=== PATIENT | female | born 1945 | race Caucasian/White ===

== ENCOUNTER 2017-10-07 14:20 | Emergency (ER) | payer MEDICARE, SELFPAY ==
[2017-10-07 14:28] VITALS: BP 156/84; PULSE 97; RESP 20; TEMP 37; O2SAT 98; BMI 35.3
--- NOTE | 2017-10-07 15:25 | ED.FALL ---
HPI - Fall <YOANDY Ames - Last Filed: 10/07/17 22:51> General Chief Complaint: Fall Stated Complaint: Fell yesterday, left wrist and shoulder pain Time Seen by Provider: 10/07/17 15:10 Source: patient Mode of arrival: ambulatory Limitations: no limitations History of Present Illness HPI Narrative: Patient had a ground level fall yesterday. She states that she landed on an outstretched hand on her left side. She was evaluated by paramedics on scene, who placed during the same splint [place] She has been taking her home dose of hydrocodone for pain. She denies any numbness or tingling. She presents with the same splint in place as well as a sling and swath. She states her wrist is swollen. She complains of hand pain, wrist pain, shoulder pain on the left side. She did not hit her head neck or back. She does not take blood thinners. She states she does not have any injuries other than her wrist. Patient emphatic that she tripped and fell, did not syncope. Related Data Home Medications Medication Instructions Recorded Confirmed Apply Cider Vinegar 15 ml PO DAILY 11/06/17 11/06/17 Choline Cocktail 1 dose PO DAILY 11/06/17 11/06/17 Allergies Allergy/AdvReac Type Severity Reaction Status Date / Time No Known Drug Allergies Allergy Verified 10/07/17 14:32 Review of Systems <YOANDY Ames - Last Filed: 10/07/17 22:51> Review of Systems GENERAL: See HPI HEENT: Denies sinus pain, ear pain, sore throat, difficulty swallowing, dizziness. RESPIRATORY: Denies dyspnea, cough, wheezing, hemoptysis, sputum. CARDIOVASCULAR: Denies chest pain, palpitations, orthopnea, edema, GASTROINTESTINAL: Denies nausea, vomiting, abdominal pain, diarrhea, constipation, melena. : Denies dysuria, frequency, incontinence, hematuria, urinary retention. MUSCULOSKELETAL: See HPI SKIN: See HPI NEUROLOGIC: Denies weakness, headache, numbness, change in speech, confusion, seizures, incoordination. PSYCHIATRIC: No concerning psychosocial issues. 12 point review of systems is negative except for those stated above Exam <YOANDY Ames - Last Filed: 10/07/17 22:51> Narrative Exam Narrative: GENERAL: This is a well-nourished, well-developed patient, teary. HEAD: Atraumatic. Normocephalic. No temporal or scalp tenderness. EYES: Pupils equal round and reactive. Extraocular motions intact. No scleral icterus. No injection or drainage. ENT: Nose without bleeding, purulent drainage or septal hematoma. Throat without erythema, tonsillar hypertrophy or exudate. Uvula midline. Airway patent. NECK: Trachea midline. No JVD or lymphadenopathy. Supple, nontender, no meningeal signs. CARDIOVASCULAR: Regular rate and rhythm without murmurs, gallops, or rubs. RESPIRATORY: Clear to auscultation. Breath sounds equal bilaterally. No wheezes, rales, or rhonchi. GASTROINTESTINAL: Abdomen soft, non-tender, nondistended. No hepato-splenomegaly, or palpable masses. No guarding. EXTREMITIES: Swelling of left wrist noted. Pain to palpation of left wrist with decreased range of motion. Patient is unable to flex or extend wrist. Pain to palpation of left elbow, however patient has full range of motion of left elbow. No pain to palpation of left shoulder. Patient does have generalized pain to palpation of left hand. Radial pulse is intact of left hand. Left fingers are warm, patient is able to move them. BACK: Nontender without deformity or crepitance. No flank tenderness. NEURO: AOx3. SKIN: Ecchymosis of left wrist. Skin is intact at left wrist. Initial Vital Signs Initial Vital Signs: Vital Signs Temperature 98.6 F 10/07/17 14:28 Pulse Rate 97 H 10/07/17 14:28 Respiratory Rate 20 10/07/17 14:28 Blood Pressure 156/84 H 10/07/17 14:28 Pulse Oximetry 98 10/07/17 14:28 <Jez Nunez MD - Last Filed: 11/08/17 06:48> Initial Vital Signs Initial Vital Signs: Vital Signs Temperature 98.6 F 10/07/17 14:28 Pulse Rate 97 H 10/07/17 14:28 Respiratory Rate 20 10/07/17 14:28 Blood Pressure 156/84 H 10/07/17 14:28 Pulse Oximetry 98 10/07/17 14:28 Procedures <FABIOLA Ames - Last Filed: 10/07/17 22:51> Orthopedic Splinting/Casting Injury #1: Side: left Upper Extremity Injury Location: wrist Upper Extremity Immobilizer: sling/shoulder immobilizer and sugar tong splint Additional Comments: Patient's pulse, motor, or sensory intact of left hand before and after splint application. Patient's fingers remained warm after splint application. Course <WALLY Ames-BC - Last Filed: 10/07/17 22:51> Hospital Course: Patient presented after a fall. She had multiple x-rays and was found to have distal ulnar radial fracture. She was placed in a splint as discussed by Orthopedics. Discussed at length with patient monitoring for circulation. I checked on her multiple times throughout her emergency department stay. Her pain was well controlled as she had taken hydrocodone prior to arrival. Orders Ordered: ED Orders 10/07/17 15:25 XR elbow LT 2V Stat XR hand LT min 3V Stat XR wrist LT min 3V Stat Consultations Consultation #1: Dr. Campbell from [facility] reviewed patient's films. Recommended sugar-tong splint and follow up with them. Stated as long as patient was neurovascularly intact, patient's fracture did not need to be reduced in the emergency department. Vital Signs - 8 hr 10/07/17 17:37 Pulse Rate 74 Respiratory Rate 12 Blood Pressure [Right Arm] 170/87 H Pulse Oximetry 100 <Jez Nunez MD - Last Filed: 11/08/17 06:48> Orders Ordered: ED Orders 10/07/17 15:25 XR elbow LT 2V Stat XR hand LT min 3V Stat XR wrist LT min 3V Stat Vital Signs - 8 hr 10/07/17 17:37 Pulse Rate 74 Respiratory Rate 12 Blood Pressure [Right Arm] 170/87 H Pulse Oximetry 100 MDM - Fall <WALLY Ames-BC - Last Filed: 10/07/17 22:51> Medical Records Patient's x-rays were suspicious for a comminuted, displaced, intra-articular fracture of the left radius. The patient also had an ulnar styloid fracture. Expert consultation was obtained through [facility], who suggested follow-up with them. Patient was placed in sugar-tong splint as per orthopedics. Pulse motor and sensory was intact before and after splint application. Discussed at length with patient return precautions a concern for decreased circulation of hand. Patient given small pain med prescription and stated understanding of not driving on at work many medications for that. No questions or concerns upon discharge. Imaging Data left wrist xray: Radiologist's impression: [address] [address] XRay Report Addendum Patient: Tricia Burton MR#: [id number] : 1945 Acct:[id number] Age/Sex: 71 / F Date of Service: 10/07/17 Loc: ED Accession Number: [id number] Procedure: XR wrist LT min 3V Ordering Provider: Stephy Ro ADDENDUM This report includes an Addendum and supersedes previous reports for this exam. PROCEDURE: XR WRIST LT MIN 3V INDICATIONS: fall, decreased rom TECHNIQUE: 4 views of the wrist were acquired. COMPARISON: None. FINDINGS: Bones: There is a comminuted, displaced, intra-articular fracture of the distal radius. There is an ulnar styloid fracture as well. Scaphoid view: The scaphoid is intact. Soft tissues: No suspicious soft tissue calcifications. IMPRESSION: Distal radial and ulnar fractures as above. Dictated by: Beatriz Wiggins M.D. on 10/07/2017 at 15:55 Approved by: Beatriz Wiggins M.D. on 10/07/2017 at 15:56 ADDENDUM: Please note, there is a subtle radiolucency projected over the scaphoid on the scaphoid view. This is not seen on the other images; however minimally displaced scaphoid fracture cannot be excluded. Dictated by: Beatriz Wiggins M.D. on 10/07/2017 at 15:58 Approved by: Beatriz Wiggins M.D. on 10/07/2017 at 15:59 Addendum Dictated By: Beatriz Wiggins M.D. Addendum Signed By: Addendum Cosigned By: DD/ /22/1600 TD/TT: 10/07/1707/22/1600 PROCEDURE: XR WRIST LT MIN 3V INDICATIONS: fall, decreased rom TECHNIQUE: 4 views of the wrist were acquired. COMPARISON: None. FINDINGS: Bones: There is a comminuted, displaced, intra-articular fracture of the distal radius. There is an ulnar styloid fracture as well. Scaphoid view: The scaphoid is intact. Soft tissues: No suspicious soft tissue calcifications. IMPRESSION: Distal radial and ulnar fractures as above. Dictated by: Beatriz Wiggins M.D. on 10/07/2017 at 15:55 Approved by: Beatriz Wiggins M.D. on 10/07/2017 at 15:56 left hand xray: Radiologist's impression: [address] [address] XRay Report Signed Patient: Tricia Burton MR#: [id number] : 1945 Acct:[id number] Age/Sex: 71 / F Date of Service: 10/07/17 Loc: ED Accession Number: [id number] Procedure: XR hand LT min 3V Ordering Provider: Stephy Ro PROCEDURE: XR HAND LT MIN 3V INDICATIONS: fall decreased rom TECHNIQUE: 3 views of the hand(s) acquired. COMPARISON: None. FINDINGS: Bones: There is a comminuted, displaced, intra-articular, impacted fracture of the distal radius. There is an ulnar styloid fracture. A subtle radiolucent line is present at the base of the scaphoid raising the suspicion for nondisplaced fracture. Soft tissues: No suspicious soft tissue calcifications. IMPRESSION: 1. Distal radial and ulnar fractures. 2. Questionable nondisplaced scaphoid fracture. Dictated by: Beatriz Wiggins M.D. on 10/07/2017 at 15:59 Approved by: Beatriz Wiggins M.D. on 10/07/2017 at 16:00 left elbow xray: Radiologist's impression: [address] [address] XRay Report Signed Patient: Tricia Burton MR#: [id number] : 1945 Acct:[id number] Age/Sex: 71 / F Date of Service: 10/07/17 Loc: ED Accession Number: [id number] Procedure: XR elbow LT 2V Ordering Provider: Stephy Ro PROCEDURE: XR ELBOW LT 2V INDICATIONS: fall decreased rom TECHNIQUE: 3 views of the elbow were acquired. COMPARISON: None. FINDINGS: Bones: No fractures or dislocations. No suspicious bony lesions. Soft tissues: No elbow joint effusion. No suspicious soft tissue calcifications. IMPRESSION: No acute radiographic findings. If pain persists, repeat study in 5-7 days is recommended to exclude occult fracture. Dictated by: Beatriz Wiggins M.D. on 10/07/2017 at 15:57 Approved by: Beatriz Wiggins M.D. on 10/07/2017 at 15:57 Discharge Plan Departure Patient Disposition: Home, Self-Care Clinical Impression: Fracture of wrist Discharge Date/Time: 10/07/17 17:52 Interventions: ED Discharge Assessment Last Done: 10/07/17 17:51 Instructions: How To Perform RICE (Rest, Ice, Compress, Elevate), How to Take Care of Your Splint, DI for Distal Radius Fracture Activity Restrictions/Additional Instructions: You broke some bones in your wrist when you fell. We have splinted your arm. I would like you to rest, use ice, elevate your arm and take the pain medication as needed. Be careful as the prescription has Tylenol in it. Do not take too much Tylenol in addition to the prescription. Monitor your hand for circulation and be evaluated if your hand becomes cold, blue or if you have concerns about your circulation. Please do not drive on the pain medication and be careful as it can make you tired. Prescriptions: No Action Apply Cider Vinegar 15 ml PO DAILY RF: 0 Choline Cocktail 1 dose PO DAILY RF: 0 Referrals: [facility] [Outside] Kelli Hooper MD [Primary Care Provider] - <Jez Nunez MD - Last Filed: 11/08/17 06:48> Cosign ED Attending Cosignature Attestation: The PA/ONCOLOGY ACCOUNT SPECIALIST functioned independently for the care of this pt, I was available, but not asked to participate in care. I am unable to determine appropriateness of management without personally examining the pt.
--- NOTE | 2017-10-07 16:58 | ED_ITS ---
HPI - Fall <YOANDY Ames - Last Filed: 10/07/17 22:51> General Chief Complaint: Fall Stated Complaint: Fell yesterday, left wrist and shoulder pain Time Seen by Provider: 10/07/17 15:10 Source: patient Mode of arrival: ambulatory Limitations: no limitations History of Present Illness HPI Narrative: Patient had a ground level fall yesterday. She states that she landed on an outstretched hand on her left side. She was evaluated by paramedics on scene, who placed during the same splint however [place] She has been taking her home dose of hydrocodone for pain. She denies any numbness or tingling. She presents with the same splint in place as well as a sling and swath. She states her wrist is swollen. She complains of hand pain, wrist pain, shoulder pain on the left side. She did not hit her head neck or back. She does not take blood thinners. She states she does not have any injuries other than her wrist. Patient emphatic that she tripped and fell, did not syncope. Related Data Home Medications Medication Instructions Recorded Confirmed Apply Cider Vinegar 15 ml PO DAILY 11/06/17 11/06/17 Choline Cocktail 1 dose PO DAILY 11/06/17 11/06/17 Allergies Allergy/AdvReac Type Severity Reaction Status Date / Time No Known Drug Allergies Allergy Verified 10/07/17 14:32 Review of Systems <YOANDY Ames - Last Filed: 10/07/17 22:51> Review of Systems GENERAL: See HPI HEENT: Denies sinus pain, ear pain, sore throat, difficulty swallowing, dizziness. RESPIRATORY: Denies dyspnea, cough, wheezing, hemoptysis, sputum. CARDIOVASCULAR: Denies chest pain, palpitations, orthopnea, edema, GASTROINTESTINAL: Denies nausea, vomiting, abdominal pain, diarrhea, constipation, melena. : Denies dysuria, frequency, incontinence, hematuria, urinary retention. MUSCULOSKELETAL: See HPI SKIN: See HPI NEUROLOGIC: Denies weakness, headache, numbness, change in speech, confusion, seizures, incoordination. PSYCHIATRIC: No concerning psychosocial issues. 12 point review of systems is negative except for those stated above Exam <YOANDY Ames - Last Filed: 10/07/17 22:51> Narrative Exam Narrative: GENERAL: This is a well-nourished, well-developed patient, teary. HEAD: Atraumatic. Normocephalic. No temporal or scalp tenderness. EYES: Pupils equal round and reactive. Extraocular motions intact. No scleral icterus. No injection or drainage. ENT: Nose without bleeding, purulent drainage or septal hematoma. Throat without erythema, tonsillar hypertrophy or exudate. Uvula midline. Airway patent. NECK: Trachea midline. No JVD or lymphadenopathy. Supple, nontender, no meningeal signs. CARDIOVASCULAR: Regular rate and rhythm without murmurs, gallops, or rubs. RESPIRATORY: Clear to auscultation. Breath sounds equal bilaterally. No wheezes , rales, or rhonchi. GASTROINTESTINAL: Abdomen soft, non-tender, nondistended. No hepato-splenomegaly , or palpable masses. No guarding. EXTREMITIES: Swelling of left wrist noted. Pain to palpation of left wrist with decreased range of motion. Patient is unable to flex or extend wrist. Pain to palpation of left elbow, however patient has full range of motion of left elbow. No pain to palpation of left shoulder. Patient does have generalized pain to palpation of left hand. Radial pulse is intact of left hand. Left fingers are warm, patient is able to move them. BACK: Nontender without deformity or crepitance. No flank tenderness. NEURO: AOx3. SKIN: Ecchymosis of left wrist. Skin is intact at left wrist. Initial Vital Signs Initial Vital Signs: Vital Signs Temperature 98.6 F 10/07/17 14:28 Pulse Rate 97 H 10/07/17 14:28 Respiratory Rate 20 10/07/17 14:28 Blood Pressure 156/84 H 10/07/17 14:28 Pulse Oximetry 98 10/07/17 14:28 <Jez Nunez MD - Last Filed: 11/08/17 06:48> Initial Vital Signs Initial Vital Signs: Vital Signs Temperature 98.6 F 10/07/17 14:28 Pulse Rate 97 H 10/07/17 14:28 Respiratory Rate 20 10/07/17 14:28 Blood Pressure 156/84 H 10/07/17 14:28 Pulse Oximetry 98 10/07/17 14:28 Procedures <FABIOLA Ames - Last Filed: 10/07/17 22:51> Orthopedic Splinting/Casting Injury #1: Side: left Upper Extremity Injury Location: wrist Upper Extremity Immobilizer: sling/shoulder immobilizer and sugar tong splint Additional Comments: Patient's pulse, motor, or sensory intact of left hand before and after splint application. Patient's fingers remained warm after splint application. Course <WALLY Ames-BC - Last Filed: 10/07/17 22:51> Hospital Course: Patient presented after a fall. She had multiple x-rays and was found to have distal ulnar radial fracture. She was placed in a splint as discussed by Orthopedics. Discussed at length with patient monitoring for circulation. I checked on her multiple times throughout her emergency department stay. Her pain was well controlled as she had taken hydrocodone prior to arrival. Orders Ordered: ED Orders 10/07/17 15:25 XR elbow LT 2V Stat XR hand LT min 3V Stat XR wrist LT min 3V Stat Consultations Consultation #1: Dr. Campbell from [facility] reviewed patient's films. Recommended sugar-tong splint and follow up with them. Stated as long as patient was neurovascularly intact, patient's fracture did not need to be reduced in the emergency department. Vital Signs - 8 hr 10/07/17 17:37 Pulse Rate 74 Respiratory Rate 12 Blood Pressure [Right Arm] 170/87 H Pulse Oximetry 100 <Jez Nunez MD - Last Filed: 11/08/17 06:48> Orders Ordered: ED Orders 10/07/17 15:25 XR elbow LT 2V Stat XR hand LT min 3V Stat XR wrist LT min 3V Stat Vital Signs - 8 hr 10/07/17 17:37 Pulse Rate 74 Respiratory Rate 12 Blood Pressure [Right Arm] 170/87 H Pulse Oximetry 100 MDM - Fall <WALLY Ames-BC - Last Filed: 10/07/17 22:51> Medical Records Patient's x-rays were suspicious for a comminuted, displaced, intra-articular fracture of the left radius. The patient also had an ulnar styloid fracture. Expert consultation was obtained through [facility], who suggested follow-up with them. Patient was placed in sugar-tong splint as per orthopedics. Pulse motor and sensory was intact before and after splint application. Discussed at length with patient return precautions a concern for decreased circulation of hand. Patient given small pain med prescription and stated understanding of not driving on at work many medications for that. No questions or concerns upon discharge. Imaging Data left wrist xray: Radiologist's impression: [address] [address] XRay Report Addendum Patient: Tricia Burton MR#: [id number] : 1945 Acct:[id number] Age/Sex: 71 / F Date of Service: 10/07/17 Loc: ED Accession Number: [id number] Procedure: XR wrist LT min 3V Ordering Provider: Stephy Ro ADDENDUM This report includes an Addendum and supersedes previous reports for this exam. PROCEDURE: XR WRIST LT MIN 3V INDICATIONS: fall, decreased rom TECHNIQUE: 4 views of the wrist were acquired. COMPARISON: None. FINDINGS: Bones: There is a comminuted, displaced, intra-articular fracture of the distal radius. There is an ulnar styloid fracture as well. Scaphoid view: The scaphoid is intact. Soft tissues: No suspicious soft tissue calcifications. IMPRESSION: Distal radial and ulnar fractures as above. Dictated by: Beatriz Wiggins M.D. on 10/07/2017 at 15:55 Approved by: Beatriz Wiggins M.D. on 10/07/2017 at 15:56 ADDENDUM: Please note, there is a subtle radiolucency projected over the scaphoid on the scaphoid view. This is not seen on the other images; however minimally displaced scaphoid fracture cannot be excluded. Dictated by: Beatriz Wiggins M.D. on 10/07/2017 at 15:58 Approved by: Beatriz Wiggins M.D. on 10/07/2017 at 15:59 Addendum Dictated By: Beatriz Wiggins M.D. Addendum Signed By: Addendum Cosigned By: DD/ /22/1600 TD/TT: 10/07/1707/22/1600 PROCEDURE: XR WRIST LT MIN 3V INDICATIONS: fall, decreased rom TECHNIQUE: 4 views of the wrist were acquired. COMPARISON: None. FINDINGS: Bones: There is a comminuted, displaced, intra-articular fracture of the distal radius. There is an ulnar styloid fracture as well. Scaphoid view: The scaphoid is intact. Soft tissues: No suspicious soft tissue calcifications. IMPRESSION: Distal radial and ulnar fractures as above. Dictated by: Beatriz Wiggins M.D. on 10/07/2017 at 15:55 Approved by: Beatriz Wiggins M.D. on 10/07/2017 at 15:56 left hand xray: Radiologist's impression: [address] [address] XRay Report Signed Patient: Tricia Burton MR#: [id number] : 1945 Acct:[id number] Age/Sex: 71 / F Date of Service: 10/07/17 Loc: ED Accession Number: [id number] Procedure: XR hand LT min 3V Ordering Provider: Stephy Ro PROCEDURE: XR HAND LT MIN 3V INDICATIONS: fall decreased rom TECHNIQUE: 3 views of the hand(s) acquired. COMPARISON: None. FINDINGS: Bones: There is a comminuted, displaced, intra-articular, impacted fracture of the distal radius. There is an ulnar styloid fracture. A subtle radiolucent line is present at the base of the scaphoid raising the suspicion for nondisplaced fracture. Soft tissues: No suspicious soft tissue calcifications. IMPRESSION: 1. Distal radial and ulnar fractures. 2. Questionable nondisplaced scaphoid fracture. Dictated by: Beatriz Wiggins M.D. on 10/07/2017 at 15:59 Approved by: Beatriz Wiggins M.D. on 10/07/2017 at 16:00 left elbow xray: Radiologist's impression: [address] [address] XRay Report Signed Patient: Tricia Burton MR#: [id number] : 1945 Acct:[id number] Age/Sex: 71 / F Date of Service: 10/07/17 Loc: ED Accession Number: [id number] Procedure: XR elbow LT 2V Ordering Provider: Stephy Ro PROCEDURE: XR ELBOW LT 2V INDICATIONS: fall decreased rom TECHNIQUE: 3 views of the elbow were acquired. COMPARISON: None. FINDINGS: Bones: No fractures or dislocations. No suspicious bony lesions. Soft tissues: No elbow joint effusion. No suspicious soft tissue calcifications. IMPRESSION: No acute radiographic findings. If pain persists, repeat study in 5 -7 days is recommended to exclude occult fracture. Dictated by: Beatriz Wiggins M.D. on 10/07/2017 at 15:57 Approved by: Beatriz Wiggins M.D. on 10/07/2017 at 15:57 Discharge Plan Departure Patient Disposition: Home, Self-Care Clinical Impression: Fracture of wrist Discharge Date/Time: 10/07/17 17:52 Interventions: ED Discharge Assessment Last Done: 10/07/17 17:51 Instructions: How To Perform RICE (Rest, Ice, Compress, Elevate), How to Take Care of Your Splint, DI for Distal Radius Fracture Activity Restrictions/Additional Instructions: You broke some bones in your wrist when you fell. We have splinted your arm. I would like you to rest, use ice, elevate your arm and take the pain medication as needed. Be careful as the prescription has Tylenol in it. Do not take too much Tylenol in addition to the prescription. Monitor your hand for circulation and be evaluated if your hand becomes cold, blue or if you have concerns about your circulation. Please do not drive on the pain medication and be careful as it can make you tired. Prescriptions: No Action Apply Cider Vinegar 15 ml PO DAILY RF: 0 Choline Cocktail 1 dose PO DAILY RF: 0 Referrals: [facility] [Outside] Kelli Hooper MD [Primary Care Provider] - <Jez Nunez MD - Last Filed: 11/08/17 06:48> Cosign ED Attending Cosignature Attestation: The PA/BARREL WASHER functioned independently for the care of this pt, I was available, but not asked to participate in care. I am unable to determine appropriateness of management without personally examining the pt.
[2017-10-07 17:37] VITALS: BP 170/87; PULSE 74; RESP 12; O2SAT 100
== END 2017-10-07 17:52 | disposition home or self-care (01) ==
PROVIDERS: Emergency Provider Nurse Practitioner Family; Family Provider Family Medicine; PCP Family Medicine
DX: S62.102A Fracture of unspecified carpal bone, left wrist, initial encounter for closed fracture (principal); W18.30XA Fall on same level, unspecified, initial encounter
CPT/HCPCS: 29105; 29240; 73070; 73110; 73130; 99283

== ENCOUNTER 2017-11-06 13:29 | Emergency (ER) | payer MEDICARE, SELFPAY ==
[2017-11-06 13:34] VITALS: BP 164/92; PULSE 100; RESP 20; TEMP 36.4; O2SAT 97
--- NOTE | 2017-11-06 13:47 | ED.LOWEXIN ---
HPI - Extremity Injury (Lower) <Helena Campos PA-C - Last Filed: 11/06/17 20:45> General Chief Complaint: Extremity Injury, Lower Stated Complaint: LEFT LEG POSSIBLE CLOT Time Seen by Provider: 11/06/17 13:47 Source: patient Mode of arrival: ambulatory Limitations: no limitations History of Present Illness HPI Narrative: This 71-year-old female is sent here by a PCP this due to mildly positive D-dimer in the setting of left radial fracture and hand fracture pinning on October 17, along with a swollen left leg. She states that the swelling actually started 10-14 days ago, mostly at the ankle level. She states she really did not have any significant pain and does have swelling in that leg from time to time due to varicosities. Swelling has improved, however she was evaluated at the clinic today and felt to need Doppler study. She denies chest pain or dyspnea or other new complaints on systems review. She has been walking without difficulty aside from left foot drop which has been present for sometimes and she states is improving. She is a smoker. She has no history of blood clots Related Data Home Medications Medication Instructions Recorded Confirmed Apply Cider Vinegar 15 ml PO DAILY 11/06/17 11/06/17 Choline Cocktail 1 dose PO DAILY 11/06/17 11/06/17 Allergies Allergy/AdvReac Type Severity Reaction Status Date / Time No Known Drug Allergies Allergy Verified 10/07/17 14:32 Review of Systems <Helena Campos PA-C - Last Filed: 11/06/17 20:45> Review of Systems All systems reviewed & are unremarkable except as noted in HPI and below Exam <Helena Campos PA-C - Last Filed: 11/06/17 20:45> Narrative Exam Narrative: GENERAL APPEARANCE: Patient sitting comfortably, in no distress. NECK/THYROID: Neck supple, no JVD. LUNGS: Clear to auscultation bilaterally. HEART: Regular rate and rhythm without murmur, normal S1, S2, no S3 or S4. EXTREMITIES: No cyanosis, trace L. ankle edema, none on the right. No calf tenderness. She has numerous ropey varicosities on both calves, more prominent on the left, as well as small spider veins bilaterally. L. pedal pulses intact NEUROLOGIC: Alert and oriented, normal speech, gait and coordination. Initial Vital Signs Initial Vital Signs: Vital Signs Temperature 97.5 F L 11/06/17 13:34 Pulse Rate 100 H 11/06/17 13:34 Respiratory Rate 20 11/06/17 13:34 Blood Pressure 164/92 H 11/06/17 13:34 Pulse Oximetry 97 11/06/17 13:34 <DO Karla Gamez Last Filed: 11/08/17 14:32> Initial Vital Signs Initial Vital Signs: Vital Signs Temperature 97.5 F L 11/06/17 13:34 Pulse Rate 100 H 11/06/17 13:34 Respiratory Rate 20 11/06/17 13:34 Blood Pressure 164/92 H 11/06/17 13:34 Pulse Oximetry 97 11/06/17 13:34 Course <Helena Campos PA-C - Last Filed: 11/06/17 20:45> Orders Ordered: ED Orders 11/06/17 13:47 US periph venous low extrem lt Stat Vital Signs - 8 hr 11/06/17 13:34 11/06/17 14:40 Temperature 97.5 F L Pulse Rate 100 H 100 H Respiratory Rate 20 18 Blood Pressure 164/92 H 162/85 H Pulse Oximetry 97 97 <DO Karla Gamez Last Filed: 11/08/17 14:32> Orders Ordered: ED Orders 11/06/17 13:47 US periph venous low extrem lt Stat Vital Signs - 8 hr 11/06/17 13:34 11/06/17 14:40 Temperature 97.5 F L Pulse Rate 100 H 100 H Respiratory Rate 20 18 Blood Pressure 164/92 H 162/85 H Pulse Oximetry 97 97 MDM - Extremity Injury (Lower) <CHRISTOPHER Willingham Last Filed: 11/06/17 20:45> Imaging Data Venous US: Radiologist's impression: View Report History [address] [address] Ultrasound Report Signed Patient: Tricia Burton MR#: [id number] : 1945 Acct:[id number] Age/Sex: 71 / F Date of Service: 11/06/17 Loc: ED Accession Number: [id number] Procedure: US periph venous low extrem lt Ordering Provider: Fishfader,Helena A P.A-C PROCEDURE: US PERIPH VENOUS LOW EXTREM LT INDICATIONS: poss DVT TECHNIQUE: Real-time imaging, as well as color and pulse Doppler interrogation, were performed of the lower extremity deep veins from the inguinal ligament to the popliteal fossa. COMPARISON: None. FINDINGS: The deep veins are normally compressible, and free of intraluminal thrombus. Color and pulse Doppler demonstrate normal phasic intraluminal flow. There is normal augmentation response to distal compression maneuver. IMPRESSION: 1. No evidence of deep venous thrombosis within the left lower extremity. Dictated by: Hugo Frey M.D. on 11/06/2017 at 14:27 Approved by: Hugo Frey M.D. on 11/06/2017 at 14:28 Discharge Plan Departure Patient Disposition: Home, Self-Care Clinical Impression: Peripheral venous insufficiency Discharge Date/Time: 11/06/17 14:40 Interventions: ED Discharge Assessment Last Done: 11/06/17 14:40 Instructions: Chronic Venous Insufficiency Activity Restrictions/Additional Instructions: You new not appear to have any blood clot in your left leg today. I suspect this is due to the chronic on and off swelling from your varicose veins there. Please return or see your PCP as we talked about if any new or acutely worsening symptoms while you are recovering from surgery Prescriptions: No Action Apply Cider Vinegar 15 ml PO DAILY RF: 0 Choline Cocktail 1 dose PO DAILY RF: 0 [facility] <Jemima Morrison DO - Last Filed: 11/08/17 14:32> [facility] Attending Elizabeth Attestation: I was immediately available in the department for consultation. Documentation has been reviewed. I agree with assessment and plan.
[2017-11-06 14:40] VITALS: BP 162/85; PULSE 100; RESP 18; O2SAT 97
== END 2017-11-06 14:40 | disposition home or self-care (01) ==
PROVIDERS: Emergency Provider Internal Medicine; Family Provider Family Medicine; PCP Family Medicine
DX: I87.2 Venous insufficiency (chronic) (peripheral) (principal)
CPT/HCPCS: 93971; 99283; 99284

== ENCOUNTER 2020-08-16 22:57 | Emergency (ER) | payer MEDICARE, SELFPAY ==
[2020-08-16 23:06] VITALS: BP 162/88; PULSE 102; RESP 15; TEMP 36.9; O2SAT 98; BMI 36.4
[2020-08-16 23:21] LABS: Bacteria Urine None Seen; WBC Urine None Seen (0-5/HPF)
[2020-08-16 23:31] LABS: Appearance Urine UA CLEAR; Bilirubin Urine UA NEGATIVE (NEGATIVE); Color Urine UA YELLOW; Glucose Urine UA NEGATIVE (Negative); Ketones Urine UA NEGATIVE (NEGATIVE); Leukocyte Esterase Urine UA NEGATIVE (NEGATIVE); Nitrite Urine UA NEGATIVE (Negative); Occult Blood Urine UA 2+ (Negative); Protein Urine UA NEGATIVE (Negative); Specific Gravity Urine UA 1.015 (1.000-1.035); Urobilinogen Urine UA 0.2 E.U./dL (0.2)
--- NOTE | 2020-08-16 23:54 | ED.GENADULT ---
HPI - General Adult General Chief complaint: Urogenital-Female Stated complaint: ABD CRAMPS Time Seen by Provider: 08/16/20 23:11 Source: patient Mode of arrival: Ambulatory Limitations: no limitations History of Present Illness HPI narrative: 74-year-old female who is here for evaluation of left-sided abdominal cramping. States the symptoms started within the past 24 hours. She did have an episode of diarrhea last night and episode of diarrhea today but this is not unusual for her. She has not had any urinary symptoms. No rashes. Has not tried anything for the symptoms. She describes pain in the left side of her abdomen. She stated that she thinks she has had diverticulitis in the past but that was many years ago and she does not remember if he feels anything like this. She has had C diff in the past but also feels that the symptoms today are different from that as well. He states that the symptoms come on and last for seconds and then completely resolved. Related Data Home Medications Medication Instructions Recorded Confirmed Apply Cider Vinegar 15 ml PO DAILY 11/06/17 11/06/17 Choline Cocktail 1 dose PO DAILY 11/06/17 11/06/17 Allergies Allergy/AdvReac Type Severity Reaction Status Date / Time No Known Drug Allergies Allergy Verified 10/07/17 14:32 Review of Systems Constitutional Constitutional: Denies fever(s) Cardiovascular Cardiovascular: Denies chest pain and Denies dyspnea Respiratory Respiratory: Denies dyspnea Gastrointestinal Gastrointestinal: Reports cramping, Reports diarrhea, Denies nausea and Denies vomiting Genitourinary Genitourinary: Denies dysuria Genitourinary: Denies dysuria Musculoskeletal Musculoskeletal: Denies arthralgias and Denies myalgias Integumentary/Breasts Skin/Breast: Denies lesions and Denies rash Neurologic Neurologic: Denies behavioral changes Psychiatric Psychiatric: Denies behavioral changes Hematologic/Lymphatic On Anticoagulants: No Allergic/Immunologic Allergic/Immunologic: Denies urticaria Patient History Medical History Acquired left foot drop Fracture of radial head, closed Lumbar disc herniation Osteoarthritis Rotator cuff syndrome of left shoulder Surgical History (Updated 11/06/17 @ 14:16 by Helena Campos PA-C) H/O: hysterectomy History of left hip replacement Social History Smoking Status: Current every day smoker Smoking Status: Current every day smoker alcohol intake frequency: a few times a week Substance Use Type: marijuana Exam Initial Vital Signs Initial Vital Signs: Vital Signs Temperature 98.5 F 08/16/20 23:06 Pulse Rate 102 H 08/16/20 23:06 Respiratory Rate 15 08/16/20 23:06 Blood Pressure 162/88 H 08/16/20 23:06 Pulse Oximetry 98 08/16/20 23:06 Const General: cooperative and comfortable Limitations: mental status not altered HENMT Head: normal to inspection and normocephalic Resp Effort & Inspection: normal respiratory effort Auscultation: clear to auscultation bilaterally Cardio Rate: regular rate Rhythm: regular rhythm GI Inspection: non-distended Palpation: soft, No firm and No tender Back/Spine/Pelvis Back: No CVA tenderness Skin Lesions: no lesions Rashes: no rashes Neuro General: patient alert, patient awake and patient oriented x3 Cognition: normal cognition Speech: speech normal Extrem General: normal to inspection and capillary refill normal Psych Appearance: grossly normal and well kempt Course Orders Ordered: ED Orders 08/16/20 23:14 Urinalysis and Microscopic Stat Vital Signs Vital signs: Vital Signs - 8 hr 08/16/20 23:06 08/17/20 00:06 Temperature 98.5 F Pulse Rate 102 H 85 Respiratory Rate 15 17 Blood Pressure 162/88 H 150/83 H Pulse Oximetry 98 98 Medical Decision Making Lab Data Lab results reviewed: Yes I reviewed the patient's lab results. Labs: Lab Results 08/16/20 Range/Units 23:14 Urine Color Yellow Urine Appearance Clear Urine pH 6.0 (4.5-8.0) Ur Specific [place] 1.015 (1.000-1.035) Urine Protein Negative (Negative) Urine Glucose (UA) Negative (Negative) g/dL Urine Ketones Negative (NEGATIVE) Urine Occult Blood 2+ H (Negative) Urine Nitrate Negative (Negative) Urine Bilirubin Negative (NEGATIVE) Urine Urobilinogen 0.2 (0.2) E.U./dL Ur Leukocyte Esterase Negative (NEGATIVE) Urine RBC 0-1/hpf (0-5/HPF) Urine WBC None seen (0-5/HPF) Ur Squamous Epith Cells 0-1 /hpf (0-5/HPF) Urine Bacteria None seen (None) Ur Culture Indicated? Cult not indicated MDM Narrative Medical decision making narrative: Patient's urine is unremarkable. She does report that her symptoms have improved since since arrival here to the ER. Had a discussion with her regarding them. Does not appear that this is a urinary tract infection low suspicion for pyelonephritis. We did discuss the possibility of diverticulitis and also renal stones. We discussed possibility of drawn labs and CT scan. She states she would like to hold on any of that workup for now because she is feeling better. She understands that we could potentially be missing an infectious/surgical issue. She states she would rather wait to see if her symptoms change or return and she will return to the emergency department if any of this happens. Discharge Plan Departure Patient Disposition: Home Clinical Impression: Abdominal cramping Instructions: DI for Abdominal Pain-Adult Activity Restrictions/Additional Instructions: Continue all of your medications as directed. Contact your primary provider for a follow-up. Please return to the emergency department at any point for new or worsening symptoms Prescriptions: No Action Apply Cider Vinegar 15 ml PO DAILY RF: 0 Choline Cocktail 1 dose PO DAILY RF: 0 Referrals: Kelli Hooper MD [Primary Care Provider] -
[2020-08-17 00:06] VITALS: BP 150/83; PULSE 85; RESP 17; O2SAT 98
[2020-08-17 00:37] LABS: RBC Urine 0-1/HPF (0-5/HPF); Squamous Epithelial Cell Urine 0-1 /HPF (0-5/HPF)
[2020-08-17 00:38] LABS: Culture Indicated Urine Cult Not Indicated
== END 2020-08-17 00:07 | disposition home or self-care (01) ==
PROVIDERS: Emergency Provider Emergency Medicine; Family Provider Family Medicine; PCP Family Medicine
DX: R10.9 Unspecified abdominal pain (principal); R19.7 Diarrhea, unspecified
CPT/HCPCS: 51798; 81001; 99282; 99283

== ENCOUNTER → 2020-08-18 13:58 | Outpatient (CLI) | payer MEDICARE, SELFPAY ==
[2020-08-18 21:05] LABS: Add Manual Diff / Slide Review NO; Basophils Absolute Auto 0 /uL (0-100); Basophils Percent Auto 0.7 % (0-2); Eosinophils Absolute Auto 200 /uL (0-450); Eosinophils Percent Auto 2.6 % (2-4); Hematocrit 41.9 % (36-46); Hemoglobin 13.6 g/dL (12.0-16.0); Lymphocytes Absolute Auto 1500 /uL (1100-4500); Lymphocytes Percent Auto 21.6 % (25-40); Mean Corpuscular HGB Conc 32.4 % (30-36); Mean Corpuscular Hemoglobin 30.8 PG (26-34); Monocytes Absolute Auto 800 /uL (0-900); Monocytes Percent Auto 11.6 % (3-14); Neutrophils Absolute Auto 4500 /uL (1500-7000); Neutrophils Percent Auto 63.5 % (50-75); Platelet Count 279 X10^3/uL (150-400); Red Blood Cell Count 4.41 X10^6/uL (4.0-5.2); Red Cell Distribution Width 13.9 % (11.6-14.8)
== END ==
PROVIDERS: Family Provider Family Medicine; PCP Family Medicine; Visit Provider Physician Assistant Medical
DX: K57.32 Diverticulitis of large intestine without perforation or abscess without bleeding (principal); R10.9 Unspecified abdominal pain; R10.32 Left lower quadrant pain
CPT/HCPCS: 85025; 87086